=== PATIENT | male | born 1990 | race Caucasian/White ===

== ENCOUNTER 2024-12-17 00:20 | Inpatient (IN) ==
--- NOTE | 2024-12-17 00:42 | Emergency Department Note ---
Impression & Plan Alcoholic intoxication, Alcohol withdrawal ED Provider Note HISTORY OF PRESENT ILLNESS: Patient is a 34-year-old male presenting with alcohol intoxication. Patient presented to [facility] for alcohol detox when he was "too intoxicated for the facility." Patient states he "drank a lot" before presenting to the facility. He had a breathalyzer done at the facility and it was 0.120, which is apparently too high for their facility. The facility also stated to EMS they are concerned he may have taken some Xanax tonight. Patient reports that he has had seizures with alcohol withdrawal in the past. He is highly intoxicated and difficult to obtain a history from. ROS: as above PHYSICAL EXAM: Constitutional: Patient appears in no acute distress. Patient is clinically intoxicated and slurring his words and falls asleep easily. Smells strongly of alcohol. HENT: Head: Normocephalic and atraumatic. Eyes: EOMI, PERRL Mouth/Throat: Mucous membranes moist. Neck: Trachea midline. Neck supple. Cardiovascular: Tachycardic with regular rhythm. No murmurs, rubs or gallops. Intact distal pulses. Pulmonary/Chest: No respiratory distress. Breath sounds clear and equal bilaterally. No wheezes or rales. Abdominal: Abdomen soft, no tenderness, rebound or guarding. Musculoskeletal: No edema, tenderness or deformity noted. Skin: Warm and dry. No rash, erythema, pallor or cyanosis Neurological: Alert. CN II-XII grossly intact, moving all extremities equally and fully. MDM: - Vitals signs showed hypertension and tachycardia. - History obtained via patient and EMS, as patient intoxicated. History as above. - Chronic conditions affecting care: Alcohol use disorder - Differential diagnoses include, but are not limited to: Alcohol intoxication; drug intoxication; electrolyte abnormality - Order placed for continuous cardiac monitoring. At this time, monitor showed rate of 100 bpm with normal sinus rhythm, per my interpretation. - External medical records reviewed. - Laboratory workup interpreted by myself showed leukocytosis (WBC 13.77); thrombocytosis (plt 482); stable electrolytes; elevated alcohol (337.1) - Patient monitored in the emergency department for over 5 hours. Patient has a history of withdrawal seizures. Discussed the case with the hospitalist service, but they report that the patient can sober up and if he starts to have withdrawal symptoms they can then be consulted. They report that he is just intoxicated at this point. - On reassessment at 5:30 AM, patient is tremulous, tachycardic and starting to hallucinate. Nursing did in AWSS score and patient scored 15. Alcohol withdraw medications were ordered and IV Ativan was also ordered for his symptoms. - Discussed case with case investigator for admission. - Hospitalist, Dr. Lemos, consulted for admission - [facility] ASSESSMENT AND PLAN: Diagnosis: Alcohol intoxication; alcohol withdrawal Plan: admit Past Med/Surg History Problem List (Updated 12/17/24 @ 05:41 by Radha Sagastume MD) Alcohol withdrawal (Acute) Alcoholic intoxication (Acute) Results & Data (ED) Vital Signs Vital Signs - 24 hr 12/17/24 00:24 12/17/24 00:24 12/17/24 00:24 Temperature 36.6 C 36.6 C Temperature Source Oral Oral Pulse Rate 100 H Pulse Rate [Left Finger] 100 H Respiratory Rate 19 19 Respiratory Effort / Characteristics Non-Labored Spontaneous Non-Labored Spontaneous Respiratory Depth Normal Normal Blood Pressure 120/75 Blood Pressure [Left Arm] 124/80 Blood Pressure Mean 90 Blood Pressure Mean [Left Arm] 94 Blood Pressure Position [Left Arm] Lying Pulse Oximetry 93 93 93 Oxygen Delivery Method Room Air Room Air Room Air Sepsis Recent Fever Within 48 Hours No Sepsis New/Unexplained Change in Mental Status N/A Sepsis Action Taken by Nursing No Action Required 12/17/24 00:30 12/17/24 00:47 12/17/24 01:00 Temperature Temperature Source Pulse Rate 106 H 106 H Pulse Rate [Left Finger] 106 H Respiratory Rate 20 24 Respiratory Effort / Characteristics Non-Labored Spontaneous Respiratory Depth Normal Blood Pressure Blood Pressure [Left Arm] 120/75 Blood Pressure Mean Blood Pressure Mean [Left Arm] 90 Blood Pressure Position [Left Arm] Lying Pulse Oximetry 93 93 Oxygen Delivery Method Room Air Room Air Sepsis Recent Fever Within 48 Hours Sepsis New/Unexplained Change in Mental Status Sepsis Action Taken by Nursing 12/17/24 02:00 12/17/24 03:00 12/17/24 04:00 Temperature Temperature Source Pulse Rate Pulse Rate [Left Finger] 89 101 H 98 H Respiratory Rate 23 19 19 Respiratory Effort / Characteristics Non-Labored Spontaneous Non-Labored Spontaneous Non-Labored Spontaneous Respiratory Depth Normal Normal Normal Blood Pressure Blood Pressure [Left Arm] 124/78 147/88 H 157/88 H Blood Pressure Mean Blood Pressure Mean [Left Arm] 93 107 111 Blood Pressure Position [Left Arm] Lying Lying Lying Pulse Oximetry 95 96 100 Oxygen Delivery Method Room Air Room Air Room Air Sepsis Recent Fever Within 48 Hours Sepsis New/Unexplained Change in Mental Status Sepsis Action Taken by Nursing 12/17/24 04:40 12/17/24 05:00 Temperature Temperature Source Pulse Rate 100 H Pulse Rate [Left Finger] 92 H Respiratory Rate 21 Respiratory Effort / Characteristics Non-Labored Spontaneous Respiratory Depth Normal Blood Pressure Blood Pressure [Left Arm] 115/78 Blood Pressure Mean Blood Pressure Mean [Left Arm] 90 Blood Pressure Position [Left Arm] Lying Pulse Oximetry 84 L Oxygen Delivery Method Room Air Sepsis Recent Fever Within 48 Hours Sepsis New/Unexplained Change in Mental Status Sepsis Action Taken by Nursing Laboratory Data 12/17/24 00:23 12/17/24 00:24 Lab Results 12/17/24 12/17/24 Range/Units 00:23 00:24 WBC 13.77 H (4.8-10.8) K/ul RBC 5.70 (4.70-6.10) M/uL Hgb 15.2 (14.0-18.0) g/dl Hct 46.2 (42.0-52.0) % MCV 81.1 (80.0-100.0) fL MCH 26.7 (25.0-34.0) pg MCHC 32.9 (32.0-36.0) g/dL RDW Std Deviation 44.0 (36.4-46.3) fL RDW Coeff of [place] 15.1 H (11.5-14.5) % Plt Count 482 H (130-400) K/uL MPV 9.5 (9.4-12.4) fL Immature Gran % (Auto) 0.7 % Neut % (Auto) 60.4 % Lymph % (Auto) 29.4 % [place] % (Auto) 6.4 % Eos % (Auto) 2.4 % Baso % (Auto) 0.7 % Neut # (Auto) 8.32 H (1.40-6.50) K/uL Lymph # (Auto) 4.05 H (1.20-3.40) K/uL [place] # (Auto) 0.88 H (0.11-0.59) K/uL Eos # (Auto) 0.33 (0.00-0.50) K/uL Baso # (Auto) 0.09 (0.00-0.20) K/uL Immature Gran # (Auto) 0.10 (0.01-0.20) K/uL Sodium 142 (136-145) mmol/L Potassium 4.0 (3.5-5.1) mmol/L Chloride 111 H (98-107) mmol/L Carbon Dioxide 22 (21-32) mmol/L Anion Gap 9 (3-11) BUN 10 (6-23) mg/dl Creatinine 1.04 (0.6-1.4) mg/dl Est Cr Clr Drug Dosing Not Reportable eGFR 96.63 BUN/Creatinine Ratio 9.6 L (10-20) Glucose 104 H (70-99(Fasting)) mg/dl Calcium 9.1 (8.6-10.3) mg/dl Total Bilirubin 0.2 (0.2-1.0) mg/dl AST 14 (13-39) U/L ALT 20 (7-52) U/L Alkaline Phosphatase 113 H (34-104) U/L Total Protein 7.6 (6.0-8.3) gm/dl Albumin 4.5 (3.4-5.0) gm/dl Globulin 3.1 (2.5-4.0) gm/dl Albumin/Globulin Ratio 1.5 (0.9-2) Ethyl Alcohol mg/dL 337.1 H (<10.0) mg/dl Discharge Plan Visit Data Chief Complaint: Alcohol Intoxication Stated Complaint: ETOH ED Provider: Radha Sagastume Discharge Problem: Alcoholic intoxication, Alcohol withdrawal Patient Disposition: Still a Patient Forms Stand Alone Forms: My [facility] Referrals Referrals: PCP,NO [Primary Care Provider] -
[2024-12-17 00:48] LABS: Basophils # (auto) 0.09 K/uL (0.00-0.20); Basophils % (auto) 0.7 %; Eosinophils # (auto) 0.33 K/uL (0.00-0.50); Eosinophils % (auto) 2.4 %; Hematocrit (blood only) 46.2 % (42.0-52.0); Hemoglobin 15.2 g/dl (14.0-18.0); Immature Granulocytes % (auto) 0.7 %; Lymphocytes # (auto) 4.05 K/uL (1.20-3.40); Lymphocytes % (auto) 29.4 %; Mean Corpuscular Hemoglobin 26.7 pg (25.0-34.0); Mean Corpuscular Hgb Conc 32.9 g/dL (32.0-36.0); Mean Corpuscular Volume 81.1 fL (80.0-100.0); Mean Platelet Volume 9.5 fL (9.4-12.4); Monocytes # (auto) 0.88 K/uL (0.11-0.59); Monocytes % (auto) 6.4 %; Neutrophils # (auto) 8.32 K/uL (1.40-6.50); Neutrophils % (auto) 60.4 %; Platelet Count 482 K/uL (130-400); RDW Coefficient of Variation 15.1 % (11.5-14.5); White Blood Count 13.77 K/ul (4.8-10.8)
[2024-12-17 01:04] LABS: Alanine Aminotransferase 20 U/L (7-52); Albumin Globulin Ratio 1.5 (0.9-2); Albumin Level 4.5 gm/dl (3.4-5.0); Alkaline Phosphatase 113 U/L (34-104); Anion Gap 9 (3-11); Aspartate Aminotransferase 14 U/L (13-39); BUN Creatinine Ratio 9.6 (10-20); Bilirubin,Total 0.2 mg/dl (0.2-1.0); Blood Urea Nitrogen 10 mg/dl (6-23); Calcium 9.1 mg/dl (8.6-10.3); Carbon Dioxide 22 mmol/L (21-32); Chloride 111 mmol/L (98-107); Globulin 3.1 gm/dl (2.5-4.0); Glucose 104 mg/dl (70-99(Fasting)); Sodium 142 mmol/L (136-145); Total Protein 7.6 gm/dl (6.0-8.3)
[2024-12-17] MEDS ORDERED: Ativan IV Alcohol Withdrawal--Active Protocol IV PRN ×2 (05:36→06:05)
[2024-12-17] MEDS ORDERED: LORazepam 2 MG/1 ML VIAL IV PRN ×3 (05:36→06:05)
[2024-12-17 05:38] LABS: Appearance Urine Clear (Clear); Bilirubin Urine Negative (Negative); Blood Urine Negative (Negative); Color Urine Yellow; Glucose Urine UA Negative (Negative); Ketones Urine Negative (Negative); Leukocyte Esterase Urine Negative (Negative); Nitrite Urine Negative (Negative); Protein Urine Negative (Negative); Urobilinogen Urine Negative (Negative); pH Urine 5.5 (4.5-7.5)
[2024-12-17] MEDS: LORazepam 2 MG/1 ML VIAL IV PRN ×2 (05:52→20:46)
[2024-12-17 05:58] LABS: Amphetamines+Metham, Urine Neg (Neg); Barbiturates, Urine Neg (Neg); Benzodiazepine, Urine Neg (Neg); Cocaine, Urine Pos (Neg); Fentanyl, Urine Neg (Neg); MDMA (Ecstacy), Urine Neg (Neg); Marijuana, Urine Pos (Neg); Methadone, Urine Neg (Neg); Opiate, Urine Neg (Neg); Phencyclidine, Urine Neg (Neg)
--- NOTE | 2024-12-17 06:02 | History & Physical Report ---
Date of Service December 17, 2024 Assessment & Plan (1) Acute hypoxemic respiratory failure: Plan: Hypoxemic respiratory failure Likely post sedative administration at the ER. Alcohol withdrawal, history alcohol withdrawal seizures as per records hypertension, stable anxiety/mood disorder hx substance abuse past tobacco abuse Admit to PCU given need to administer high-dose Ativan Supplemental O2 Baseline VBG and chest x-ray SURY S, DT precautions Initiate gabapentin protocol once patient awake Obtain additional history and complete medication list from patient once awake. DVT prophylaxis. Lovenox subcu Full code Text document was generated using Dragon Tail voice recognition software. It may contain grammatical or spelling errors. Kindly contact undersigned for clarification of any documentation item in question. History of Present Illness Chief Complaint: Detox as per records Primary Care Provider: Dr. Cayden Hatch History obtained from ED provider and records. Unable to obtain history from patient secondary to obtunded state post IV Ativan administration at the ER. Medical history significant for hypertension, history of alcohol withdrawal seizures as per records, migraine, pineal gland cyst as per records, anxiety/mood disorder, alcohol abuse, substance abuse, past tobacco abuse. Patient is a resident of [facility] who went to [facility] yesterday for alcohol detox. Breathalyzer levels too high for facility as per report. Patient directed to ER for evaluation. 3 mg IV Ativan administered at the ER for agitation. Patient currently obtunded and unable to answer any questions coherently. Lowest O2 sats of 80s documented at the ER. Medical History as above Surgical History : Hernia repair, tonsillectomy/adenoidectomy, knee surgery, hip surgery Family History : Polycystic kidney disease Personal/Social history : Past tobacco abuse, alcohol abuse, prior employment Allergies Allergy/AdvReac Type Severity Reaction Status Date / Time citalopram Allergy Unknown Chest Unverified 12/17/24 09:48 discomfort, not effective dexamethasone [From Decadron] Allergy Unknown "I go Unverified 12/17/24 09:48 nuts, do not want it." metoclopramide [From Reglan] Allergy Unknown Restlessnes Unverified 12/17/24 09:48 s naproxen Allergy Unknown Abdominal Unverified 12/17/24 09:48 Pain Penicillins Allergy Unknown Hives - Unverified 12/17/24 09:48 Childhood allergy prochlorperazine Allergy Unknown Ataxia and Unverified 12/17/24 09:48 [From Compazine] restlessness "goes nuts" Home Medications Medication Instructions Recorded Confirmed Type No Known Home Medications 12/17/24 12/17/24 History Past Med/Surg History Problem List (Updated 12/17/24 @ 09:48 by Gil Lemos MD) Acute hypoxemic respiratory failure Alcohol withdrawal (Acute) Alcoholic intoxication (Acute) Social History Smoking Status: Current every day smoker Feels Safe at Home: Yes Review of Systems Review of Systems: Could not be reliably obtained secondary to obtunded state Physical Exam Physical Exam: GENERAL: Obtunded, looks older than stated age, no respiratory distress SKIN: Normal color, warm HEENT: [place] palpebral conjunctivae, no ptosis, dry buccal mucosa NECK : Supple, no tenderness CHEST : Decreased breath sounds, some rhonchi, no tenderness HEART : Tachycardic, no obvious murmurs ABDOMEN: Some distention, nontender EXTREMITIES : No LE swelling/tenderness, palpable pulses, no other conspicuous deformities noted NEUROLOGIC : Obtunded, no facial asymmetry, gait and stance not assessed Results & Data Results & Data Vital Signs (Past 12 Hours) Vital Signs Temp Pulse Pulse Resp BP BP Pulse Ox 12/17/24 05:00 92 H 21 115/78 84 L 12/17/24 04:40 100 H 12/17/24 04:00 98 H 19 157/88 H 100 12/17/24 03:00 101 H 19 147/88 H 96 12/17/24 02:00 89 23 124/78 95 12/17/24 01:00 106 H 24 120/75 93 12/17/24 00:47 106 H 20 93 12/17/24 00:30 106 H 12/17/24 00:24 36.6 C 100 H 19 124/80 93 12/17/24 00:24 93 12/17/24 00:24 36.6 C 100 H 19 120/75 93 O2 Del Method 12/17/24 05:00 Room Air 12/17/24 04:40 12/17/24 04:00 Room Air 12/17/24 03:00 Room Air 12/17/24 02:00 Room Air 12/17/24 01:00 Room Air 12/17/24 00:47 Room Air 12/17/24 00:30 12/17/24 00:24 Room Air 12/17/24 00:24 Room Air 12/17/24 00:24 Room Air Laboratory Results Laboratory Results WBC 13.77 K/ul (4.8-10.8) H 12/17/24 00:23 RBC 5.70 M/uL (4.70-6.10) 12/17/24 00:23 Hgb 15.2 g/dl (14.0-18.0) 12/17/24 00:23 Hct 46.2 % (42.0-52.0) 12/17/24 00:23 MCV 81.1 fL (80.0-100.0) 12/17/24 00:23 MCH 26.7 pg (25.0-34.0) 12/17/24 00:23 MCHC 32.9 g/dL (32.0-36.0) 12/17/24 00:23 RDW Std Deviation 44.0 fL (36.4-46.3) 12/17/24 00:23 RDW Coeff of Evette 15.1 % (11.5-14.5) H 12/17/24 00:23 Plt Count 482 K/uL (130-400) H 12/17/24 00:23 MPV 9.5 fL (9.4-12.4) 12/17/24 00:23 Immature Gran % (Auto) 0.7 % 12/17/24 00:23 Neut % (Auto) 60.4 % 12/17/24 00:23 Lymph % (Auto) 29.4 % 12/17/24 00:23 [place] % (Auto) 6.4 % 12/17/24 00:23 Eos % (Auto) 2.4 % 12/17/24 00:23 Baso % (Auto) 0.7 % 12/17/24 00:23 Neut # (Auto) 8.32 K/uL (1.40-6.50) H 12/17/24 00:23 Lymph # (Auto) 4.05 K/uL (1.20-3.40) H 12/17/24 00:23 [place] # (Auto) 0.88 K/uL (0.11-0.59) H 12/17/24 00:23 Eos # (Auto) 0.33 K/uL (0.00-0.50) 12/17/24 00:23 Baso # (Auto) 0.09 K/uL (0.00-0.20) 12/17/24 00:23 Immature Gran # (Auto) 0.10 K/uL (0.01-0.20) 12/17/24 00:23 Sodium 142 mmol/L (136-145) 12/17/24 00:24 Potassium 4.0 mmol/L (3.5-5.1) 12/17/24 00:24 Chloride 111 mmol/L (98-107) H 12/17/24 00:24 Carbon Dioxide 22 mmol/L (21-32) 12/17/24 00:24 Anion Gap 9 (3-11) 12/17/24 00:24 BUN 10 mg/dl (6-23) 12/17/24 00:24 Creatinine 1.04 mg/dl (0.6-1.4) 12/17/24 00:24 Est Cr Clr Drug Dosing Not Reportable 12/17/24 00:24 eGFR 96.63 12/17/24 00:24 BUN/Creatinine Ratio 9.6 (10-20) L 12/17/24 00:24 Glucose 104 mg/dl (70-99(Fasting)) H 12/17/24 00:24 Calcium 9.1 mg/dl (8.6-10.3) 12/17/24 00:24 Total Bilirubin 0.2 mg/dl (0.2-1.0) 12/17/24 00:24 AST 14 U/L (13-39) 12/17/24 00:24 ALT 20 U/L (7-52) 12/17/24 00:24 Alkaline Phosphatase 113 U/L (34-104) H 12/17/24 00:24 Total Protein 7.6 gm/dl (6.0-8.3) 12/17/24 00:24 Albumin 4.5 gm/dl (3.4-5.0) 12/17/24 00:24 Globulin 3.1 gm/dl (2.5-4.0) 12/17/24 00:24 Albumin/Globulin Ratio 1.5 (0.9-2) 12/17/24 00:24 Urine Color Yellow 12/17/24 05:25 Urine Appearance Clear (Clear) 12/17/24 05:25 Urine pH 5.5 (4.5-7.5) 12/17/24 05:25 Ur Specific [place] 1.010 (1.000-1.030) 12/17/24 05:25 Urine Protein Negative (Negative) 12/17/24 05:25 Urine Glucose (UA) Negative (Negative) 12/17/24 05:25 Urine Ketones Negative (Negative) 12/17/24 05:25 Urine Blood Negative (Negative) 12/17/24 05:25 Urine Nitrite Negative (Negative) 12/17/24 05:25 Urine Bilirubin Negative (Negative) 12/17/24 05:25 Urine Urobilinogen Negative (Negative) 12/17/24 05:25 Ur Leukocyte Esterase Negative (Negative) 12/17/24 05:25 Urine Opiates Screen Neg (Neg) 12/17/24 05:25 Ur Methadone, Qual Neg (Neg) 12/17/24 05:25 Urine Fentanyl Screen Neg (Neg) 12/17/24 05:25 Urine Barbiturates Neg (Neg) 12/17/24 05:25 Ur Phencyclidine (PCP) Neg (Neg) 12/17/24 05:25 U Amphetamin/Meth Scrn Neg (Neg) 12/17/24 05:25 MDMA (Ecstasy) Screen Neg (Neg) 12/17/24 05:25 U Benzodiazepines Scrn Neg (Neg) 12/17/24 05:25 Ur Cocaine Metabolite Pos (Neg) H 12/17/24 05:25 U Marijuana (THC) Screen Pos (Neg) H 12/17/24 05:25 Ethyl Alcohol mg/dL 337.1 mg/dl (<10.0) H 12/17/24 00:24
[2024-12-17 06:14] LABS: Magnesium 2.5 mg/dl (1.7-2.4)
[2024-12-17] MEDS: THIAMINE HCL 100 MG in SYRINGE 9 ML IV STA (06:24)
[2024-12-17] MEDS: Patient's ALLERGY Info needs ENTERED STA (07:22)
[2024-12-17 07:30] LABS: Base Excess VBG 3.9 mEq/L; HCO3 VBG 31 mmol/L; Oxygen Saturation VBG < 60.0 %; PCO2 VBG 56 mmHg (38-50); PO2 VBG 20 mmHg; pH VBG 7.35 (7.36-7.41)
[2024-12-17] MEDS ORDERED: FOLIC ACID 1 MG in SYRINGE 9.8 ML IV SCH (09:00)
[2024-12-17] MEDS ORDERED: THIAMINE HCL 100 MG in SYRINGE 9 ML IV SCH (09:00)
--- NOTE | 2024-12-17 09:26 | XRay Report ---
XR chest 1V portable CLINICAL HISTORY: low o2 COMPARISON STUDY: None FINDINGS: Heart size and pulmonary vasculature are normal. No effusion, consolidation, or pneumothora x. IMPRESSION: No acute findings. ACT 112: Negative or not required by law. Electronically signed by: Ming Gonsalves M.D. 12/17/2024 9:24 AM
[2024-12-17] MEDS: MULTIVITAMIN TAB PO SCH (09:50)
[2024-12-17] MEDS: FOLIC ACID 1 MG TAB PO SCH (09:50)
[2024-12-17] MEDS ORDERED: cloNIDine HCL 0.1 MG TAB PO PRN (10:12)
[2024-12-17] MEDS ORDERED: GABAPENTIN 1200MG ALCOHOL WITHDRAWAL LOAD PO STA (10:13)
[2024-12-17] MEDS: NICOTINE 21 MG/24 HR TDSY TD STA (10:28)
[2024-12-17] MEDS: ENOXAPARIN INJ 40 MG/0.4 ML SYR SQ SCH (10:28)
[2024-12-17] MEDS: GABAPENTIN 600 MG TAB PO ONE (10:29)
[2024-12-17 11:18] LABS: Adenovirus PCR Not Detected (NotDetected); Bordetella parapertussis PCR Not Detected (NotDetected); Bordetella pertussis PCR Not Detected (NotDetected); Chlamydia pneumoniae PCR Not Detected (NotDetected); Coronavirus 229E PCR Not Detected (NotDetected); Coronavirus CoV-2 (COVID19)PCR Not Detected (NotDetected); Coronavirus HKU1 PCR Not Detected (NotDetected); Coronavirus NL63 PCR Not Detected (NotDetected); Coronavirus OC43PCR Not Detected (NotDetected); Human Metapneumovirus PCR Not Detected (NotDetected); Influenza A PCR Not Detected (NotDetected); Influenza B PCR Not Detected (NotDetected); Mycoplasma pneumoniae PCR Not Detected (NotDetected); Parainfluenza Virus 1 PCR Not Detected (NotDetected); Parainfluenza Virus 2 PCR Not Detected (NotDetected); Parainfluenza Virus 3 PCR Not Detected (NotDetected); Parainfluenza Virus 4 PCR Not Detected (NotDetected); Respiratory Syncytial VirusPCR Not Detected (NotDetected); Rhinovirus/Enterovirus PCR Not Detected (NotDetected)
--- NOTE | 2024-12-17 15:19 | Hospitalist Progress Note ---
Date of Service December 17, 2024 Assessment & Plan (1) Acute hypoxemic respiratory failure: Plan: Alcohol Intoxication/withdrawal Drug abuse Patient admits to use THC, cocaine, and Xanax H/O alcohol withdrawal seizures in the past per patient --Toxicology positive for cocaine, THC --Alcohol level: 337 Continue gabapentin protocol Also on thiamine, folic acid Counseled to quit drug use Monitor for alcohol withdrawal Plan to discharge to drug rehab when medically stable Hypoxemic respiratory failure Likely post sedative administration in ED --CXR:No acute findings. -- BioFire negative Weaned off of supplemental oxygen Monitor Tobacco use disorder Nicotine patch Counseled to quit smoking Hypertension Likely due to alcohol/drug withdrawal Clonidine as needed Monitor Anxiety/mood disorder Chronic pain On Suboxone DVT Px: Lovenox SQ Code Status Full code Admission and Anticipated Discharge Date Admission Date: December 17, 2024 Subjective Patient is seen and examined at bedside Patient states feeling anxious during my encounter this morning Also reports nausea, minimal cough and rhinitis Denies any chest pain, abdominal pain, dizziness No other complaints Review of Systems Review of Systems: All systems reviewed & are unremarkable except as noted in Subjective Physical Exam Physical Exam: Physical Exam: Vitals signs as noted above General Appearance:Moderately built and nourished, no apparent distress Head: normocephalic, Atraumatic Eyes: normal inspection, EOMI Neck: supple, Trachea midline Respiratory/Chest: Normal breath sounds, CTA, No accessory muscle use Cardiovascular: S1, S2, No murmur, tachycardia Abdomen/GI:Soft, Non tender, Bowel sounds present Extremities/Musculoskeletal:normal inspection, no edema Neurologic/Psych:AAOX3, grossly no focal neurological deficits Skin: normal color, warm Results & Data Results & Data Vital Signs (Past 12 Hours) Vital Signs Temp Pulse Pulse Resp BP BP Pulse Ox 12/17/24 13:30 101 H 20 125/69 93 12/17/24 13:00 101 H 22 162/83 H 94 12/17/24 12:36 24 144/95 H 96 12/17/24 12:05 102 H 18 118/76 97 12/17/24 12:00 37 C 12/17/24 11:00 99 H 22 147/94 H 97 12/17/24 10:35 36.9 C 120 H 18 150/96 H 94 12/17/24 09:03 37 C 114 H 17 133/88 98 12/17/24 08:36 97 H 12/17/24 07:05 98 H 21 145/82 H 94 12/17/24 06:45 36.6 C 96 H 20 132/79 95 12/17/24 06:00 36.6 C 98 H 19 139/82 96 12/17/24 05:00 92 H 21 115/78 95 12/17/24 04:40 100 H 12/17/24 04:00 98 H 19 157/88 H 100 O2 Del Method 12/17/24 13:30 12/17/24 13:00 12/17/24 12:36 12/17/24 12:05 12/17/24 12:00 12/17/24 11:00 12/17/24 10:35 Room Air 12/17/24 09:03 Room Air 12/17/24 08:36 12/17/24 07:05 Room Air 12/17/24 06:45 Room Air 12/17/24 06:00 Room Air 12/17/24 05:00 Room Air 12/17/24 04:40 12/17/24 04:00 Room Air Laboratory Results Short CBC 12/17/24 Range/Units 00:23 WBC 13.77 H (4.8-10.8) K/ul Hgb 15.2 (14.0-18.0) g/dl Hct 46.2 (42.0-52.0) % Plt Count 482 H (130-400) K/uL BMP 12/17/24 00:24 Sodium 142 Potassium 4.0 Chloride 111 H Carbon Dioxide 22 BUN 10 Creatinine 1.04 Glucose 104 H Calcium 9.1 Liver Function 12/17/24 Range/Units 00:24 Total Bilirubin 0.2 (0.2-1.0) mg/dl AST 14 (13-39) U/L ALT 20 (7-52) U/L Alkaline Phosphatase 113 H (34-104) U/L Albumin 4.5 (3.4-5.0) gm/dl Urine 12/17/24 Range/Units 05:25 Urine Color Yellow Urine Appearance Clear (Clear) Urine pH 5.5 (4.5-7.5) Ur Specific [place] 1.010 (1.000-1.030) Urine Protein Negative (Negative) Urine Glucose (UA) Negative (Negative)
[2024-12-17] MEDS: GABAPENTIN 600 MG TAB PO SCH (16:35)
[2024-12-17] MEDS ORDERED: ONDANSETRON INJ 2 MG/ML 2 ML VIAL IV PRN (19:29)
[2024-12-17] MEDS: ONDANSETRON INJ 2 MG/ML 2 ML VIAL IV STA (19:52)
[2024-12-17] MEDS ORDERED: MELATONIN 3 MG TAB PO PRN (19:56)
[2024-12-17] MEDS: BUPRENORPHINE/NALOXONE 8/2 MG TAB SL SCH (20:48)
[2024-12-17] MEDS: QUEtiapine FUMARATE 50 MG TABCR PO PRN (22:01)
[2024-12-18] MEDS: GABAPENTIN 600 MG TAB PO SCH (05:33)
[2024-12-18 06:17] LABS: Hematocrit (blood only) 44.5 % (42.0-52.0); Hemoglobin 14.5 g/dl (14.0-18.0); Mean Corpuscular Hemoglobin 26.7 pg (25.0-34.0); Mean Corpuscular Hgb Conc 32.6 g/dL (32.0-36.0); Mean Corpuscular Volume 81.8 fL (80.0-100.0); Mean Platelet Volume 9.9 fL (9.4-12.4); Platelet Count 423 K/uL (130-400); RDW Coefficient of Variation 15.3 % (11.5-14.5); RDW Standard Deviation 45.1 fL (36.4-46.3); Red Blood Count 5.44 M/uL (4.70-6.10)
[2024-12-18 06:49] LABS: BUN Creatinine Ratio 21.7 (10-20); Calcium 8.7 mg/dl (8.6-10.3); Creatinine Clr Calc Pharmacy 186.9 ml/min; Potassium 3.8 mmol/L (3.5-5.1)
[2024-12-18] MEDS ORDERED: QUEtiapine FUMARATE 200 MG TABCR PO PRN (09:12)
[2024-12-18] MEDS: LORazepam 1 MG TAB PO STA (10:21)
[2024-12-18] MEDS: NICOTINE 21 MG/24 HR TDSY TD SCH (10:22)
[2024-12-18] MEDS: THIAMINE HCL 100 MG TAB PO SCH (10:24)
--- NOTE | 2024-12-18 12:22 | Hospitalist Progress Note ---
Date of Service December 18, 2024 Assessment & Plan (1) Acute hypoxemic respiratory failure: Plan: Alcohol Intoxication/withdrawal Drug abuse Patient admits to use THC, cocaine, and Xanax H/O alcohol withdrawal seizures in the past per patient --Toxicology positive for cocaine, THC --Alcohol level: 337 Continue gabapentin protocol Also on thiamine, folic acid Counseled to quit drug use Monitor for alcohol withdrawal Plan to discharge to drug rehab today Hypoxemic respiratory failure Likely post sedative administration in ED --CXR:No acute findings. -- BioFire negative Weaned off of supplemental oxygen Monitor Saturating well on room air Tobacco use disorder Nicotine patch Counseled to quit smoking Hypertension Likely due to alcohol/drug withdrawal Clonidine as needed Monitor Anxiety/mood disorder Chronic pain On Suboxone DVT Px: Lovenox SQ Code Status Full code Admission and Anticipated Discharge Date Admission Date: December 17, 2024 Subjective Patient is seen and examined at bedside Reports chronic [id number] of feet No other complaints today Prefers to be discharged to [facility] today No nausea, cough today Denies any chest pain, dyspnea, abdominal pain, dizziness Plan to discharge to drug rehab center today Review of Systems Review of Systems: All systems reviewed & are unremarkable except as noted in Subjective Physical Exam Physical Exam: Physical Exam: Vitals signs as noted above General Appearance:Moderately built and nourished, no apparent distress Head: normocephalic, Atraumatic Eyes: normal inspection, EOMI Neck: supple, Trachea midline Respiratory/Chest: Normal breath sounds, CTA, No accessory muscle use Cardiovascular: S1, S2, No murmur, tachycardia Abdomen/GI:Soft, Non tender, Bowel sounds present Extremities/Musculoskeletal:normal inspection, no edema Neurologic/Psych:AAOX3, grossly no focal neurological deficits Skin: normal color, warm Results & Data Results & Data Vital Signs (Past 12 Hours) Vital Signs Temp Pulse Resp BP BP Pulse Ox O2 Del Method 12/18/24 12:16 Room Air 12/18/24 10:50 36.5 C 90 18 161/102 H 98 Room Air 12/18/24 07:23 36.4 C L 78 18 143/84 H 98 Room Air 12/18/24 03:45 36.3 C L 87 18 132/88 95 Room Air Laboratory Results Short CBC 12/18/24 Range/Units 05:31 WBC 11.90 H (4.8-10.8) K/ul Hgb 14.5 (14.0-18.0) g/dl Hct 44.5 (42.0-52.0) % Plt Count 423 H (130-400) K/uL [facility] 12/18/24 05:31 Sodium 141 Potassium 3.8 Chloride 109 H Carbon Dioxide 25 BUN 15 Creatinine 0.69 D Glucose 95 Calcium 8.7
--- NOTE | 2024-12-18 12:31 | Discharge Summary ---
Date of Service December 18, 2024 Admission HPI Per Admitting Provider History obtained from ED provider and records. Unable to obtain history from patient secondary to obtunded state post IV Ativan administration at the ER. Medical history significant for hypertension, history of alcohol withdrawal seizures as per records, migraine, pineal gland cyst as per records, anxiety/mood disorder, alcohol abuse, substance abuse, past tobacco abuse. Patient is a resident of [facility] who went to [facility] yesterday for alcohol detox. Breathalyzer levels too high for facility as per report. Patient directed to ER for evaluation. 3 mg IV Ativan administered at the ER for agitation. Patient currently obtunded and unable to answer any questions coherently. Lowest O2 sats of 80s documented at the ER. Medical History as above Surgical History : Hernia repair, tonsillectomy/adenoidectomy, knee surgery, hip surgery Family History : Polycystic kidney disease Personal/Social history : Past tobacco abuse, alcohol abuse, prior employment Admission Exam Per Admitting Provider GENERAL: Obtunded, looks older than stated age, no respiratory distress SKIN: Normal color, warm HEENT: [place] palpebral conjunctivae, no ptosis, dry buccal mucosa NECK : Supple, no tenderness CHEST : Decreased breath sounds, some rhonchi, no tenderness HEART : Tachycardic, no obvious murmurs ABDOMEN: Some distention, nontender EXTREMITIES : No LE swelling/tenderness, palpable pulses, no other conspicuous deformities noted NEUROLOGIC : Obtunded, no facial asymmetry, gait and stance not assessed Principal Diagnosis Alcohol Intoxication/withdrawal Drug abuse Mood disorder Chronic pain Discharge Data Allergies Allergy/AdvReac Type Severity Reaction Status Date / Time citalopram Allergy Unknown Chest Unverified 12/17/24 09:48 discomfort, not effective dexamethasone [From Decadron] Allergy Unknown "I go Unverified 12/17/24 09:48 nuts, do not want it." metoclopramide [From Reglan] Allergy Unknown Restlessnes Unverified 12/17/24 09:48 s naproxen Allergy Unknown Abdominal Unverified 12/17/24 09:48 Pain Penicillins Allergy Unknown Hives - Unverified 12/17/24 09:48 Childhood allergy prochlorperazine Allergy Unknown Ataxia and Unverified 12/17/24 09:48 [From Compazine] restlessness "goes nuts" Consultations 12/17/24 05:36 ED Decision to Admit Stat Procedures Performed Laboratory Results WBC 11.90 K/ul (4.8-10.8) H 12/18/24 05:31 RBC 5.44 M/uL (4.70-6.10) 12/18/24 05:31 Hgb 14.5 g/dl (14.0-18.0) 12/18/24 05:31 Hct 44.5 % (42.0-52.0) 12/18/24 05:31 MCV 81.8 fL (80.0-100.0) 12/18/24 05:31 MCH 26.7 pg (25.0-34.0) 12/18/24 05:31 MCHC 32.6 g/dL (32.0-36.0) 12/18/24 05:31 RDW Std Deviation 45.1 fL (36.4-46.3) 12/18/24 05:31 RDW Coeff of Evette 15.3 % (11.5-14.5) H 12/18/24 05:31 Plt Count 423 K/uL (130-400) H 12/18/24 05:31 MPV 9.9 fL (9.4-12.4) 12/18/24 05:31 Immature Gran % (Auto) 0.7 % 12/17/24 00:23 Neut % (Auto) 60.4 % 12/17/24 00:23 Lymph % (Auto) 29.4 % 12/17/24 00:23 Ward % (Auto) 6.4 % 12/17/24 00:23 Eos % (Auto) 2.4 % 12/17/24 00:23 Baso % (Auto) 0.7 % 12/17/24 00:23 Neut # (Auto) 8.32 K/uL (1.40-6.50) H 12/17/24 00:23 Lymph # (Auto) 4.05 K/uL (1.20-3.40) H 12/17/24 00:23 Ward # (Auto) 0.88 K/uL (0.11-0.59) H 12/17/24 00:23 Eos # (Auto) 0.33 K/uL (0.00-0.50) 12/17/24 00:23 Baso # (Auto) 0.09 K/uL (0.00-0.20) 12/17/24 00:23 Immature Gran # (Auto) 0.10 K/uL (0.01-0.20) 12/17/24 00:23 VBG pH 7.35 (7.36-7.41) L 12/17/24 07:25 VBG pCO2 56 mmHg (38-50) H 12/17/24 07:25 VBG pO2 20 mmHg 12/17/24 07: VBG HCO3 31 mmol/L 12/17/24 07:25 VBG O2 Saturation < 60.0 % 12/17/24 07:25 VBG Base Excess 3.9 mEq/L 12/17/24 07:25 Sodium 141 mmol/L (136-145) 12/18/24 05:31 Potassium 3.8 mmol/L (3.5-5.1) 12/18/24 05:31 Chloride 109 mmol/L (98-107) H 12/18/24 05:31 Carbon Dioxide 25 mmol/L (21-32) 12/18/24 05:31 Anion Gap 7 (3-11) 12/18/24 05:31 BUN 15 mg/dl (6-23) 12/18/24 05:31 Creatinine 0.69 mg/dl (0.6-1.4) D 12/18/24 05:31 Est Cr Clr Drug Dosing 186.9 ml/min 12/18/24 05:31 eGFR 124.54 12/18/24 05:31 BUN/Creatinine Ratio 21.7 (10-20) H 12/18/24 05:31 Glucose 95 mg/dl (70-99(Fasting)) 12/18/24 05:31 Calcium 8.7 mg/dl (8.6-10.3) 12/18/24 05:31 Magnesium 2.5 mg/dl (1.7-2.4) H 12/17/24 00:24 Total Bilirubin 0.2 mg/dl (0.2-1.0) 12/17/24 00:24 AST 14 U/L (13-39) 12/17/24 00:24 ALT 20 U/L (7-52) 12/17/24 00:24 Alkaline Phosphatase 113 U/L (34-104) H 12/17/24 00:24 Total Protein 7.6 gm/dl (6.0-8.3) 12/17/24 00:24 Albumin 4.5 gm/dl (3.4-5.0) 12/17/24 00:24 Globulin 3.1 gm/dl (2.5-4.0) 12/17/24 00:24 Albumin/Globulin Ratio 1.5 (0.9-2) 12/17/24 00:24 Urine Color Yellow 12/17/24 05:25 Urine Appearance Clear (Clear) 12/17/24 05:25 Urine pH 5.5 (4.5-7.5) 12/17/24 05:25 Ur Specific Brantley 1.010 (1.000-1.030) 12/17/24 05:25 Urine Protein Negative (Negative) 12/17/24 05:25 Urine Glucose (UA) Negative (Negative) 12/17/24 05:25 Urine Ketones Negative (Negative) 12/17/24 05:25 Urine Blood Negative (Negative) 12/17/24 05:25 Urine Nitrite Negative (Negative) 12/17/24 05:25 Urine Bilirubin Negative (Negative) 12/17/24 05:25 Urine Urobilinogen Negative (Negative) 12/17/24 05:25 Ur Leukocyte Esterase Negative (Negative) 12/17/24 05:25 Urine Opiates Screen Neg (Neg) 12/17/24 05:25 Ur Methadone, Qual Neg (Neg) 12/17/24 05:25 Urine Fentanyl Screen Neg (Neg) 12/17/24 05:25 Urine Barbiturates Neg (Neg) 12/17/24 05:25 Ur Phencyclidine (PCP) Neg (Neg) 12/17/24 05:25 U Amphetamin/Meth Scrn Neg (Neg) 12/17/24 05:25 MDMA (Ecstasy) Screen Neg (Neg) 12/17/24 05:25 U Benzodiazepines Scrn Neg (Neg) 12/17/24 05:25 Ur Cocaine Metabolite Pos (Neg) H 12/17/24 05:25 U Marijuana (THC) Screen Pos (Neg) H 12/17/24 05:25 Ethyl Alcohol mg/dL 337.1 mg/dl (<10.0) H 12/17/24 00:24 Adenovirus (PCR) Not Detected (NotDetected) 12/17/24 Unknown B. pertussis DNA (PCR) Not Detected (NotDetected) 12/17/24 Unknown B.parapertussis DNA PCR Not Detected (NotDetected) 12/17/24 Unknown C. pneumoniae DNA (PCR) Not Detected (NotDetected) 12/17/24 Unknown Coronavirus OC43 (PCR) Not Detected (NotDetected) 12/17/24 Unknown Coronavirus HKU1 (PCR) Not Detected (NotDetected) 12/17/24 Unknown Coronavirus 229E (PCR) Not Detected (NotDetected) 12/17/24 Unknown SARS-CoV-2 (PCR) Not Detected (NotDetected) 12/17/24 Unknown Coronavirus NL63 (PCR) Not Detected (NotDetected) 12/17/24 Unknown Human Metapneumovir PCR Not Detected (NotDetected) 12/17/24 Unknown Influenza Type A (PCR) Not Detected (NotDetected) 12/17/24 Unknown Influenza Type B (PCR) Not Detected (NotDetected) 12/17/24 Unknown M. pneumoniae (PCR) Not Detected (NotDetected) 12/17/24 Unknown Parainfluenza 1 (PCR) Not Detected (NotDetected) 12/17/24 Unknown Parainfluenza 2 (PCR) Not Detected (NotDetected) 12/17/24 Unknown Parainfluenza 3 (PCR) Not Detected (NotDetected) 12/17/24 Unknown Parainfluenza 4 (PCR) Not Detected (NotDetected) 12/17/24 Unknown RSV (PCR) Not Detected (NotDetected) 12/17/24 Unknown Entero/Rhino (PCR) Not Detected (NotDetected) 12/17/24 Unknown Impressions Chest X-Ray 12/17/24 05:50 XR chest 1V portable CLINICAL HISTORY: low o2 COMPARISON STUDY: None FINDINGS: Heart size and pulmonary vasculature are normal. No effusion, consolidation, or pneumothorax. IMPRESSION: No acute findings. ACT 112: Negative or not required by law. Electronically signed by: Ming Gonsalves M.D. 12/17/2024 9:24 AM Hospital Course (1) Acute hypoxemic respiratory failure: Alcohol Intoxication/withdrawal Drug abuse Patient admits to use THC, cocaine, and Xanax H/O alcohol withdrawal seizures in the past per patient --Toxicology positive for cocaine, THC --Alcohol level: 337 Continue gabapentin protocol Also on thiamine, folic acid Counseled to quit drug use Monitor for alcohol withdrawal Plan to discharge to drug rehab today Hypoxemic respiratory failure Likely post sedative administration in ED --CXR:No acute findings. -- BioFire negative Weaned off of supplemental oxygen Monitor Saturating well on room air Tobacco use disorder Nicotine patch Counseled to quit smoking Hypertension Likely due to alcohol/drug withdrawal Clonidine as needed Monitor Anxiety/mood disorder Chronic pain On Suboxone DVT Px: Lovenox SQ Code Status Full code Total Time Total Time Spent Total Time Spent (In Minutes): 54 minutes Discharge Plan Discharge Items Patient Disposition: Drug & Alcohol Rehab Reason For Visit: RESP FAILURE, ETOH WITHDRAWL Discharge Diagnosis: Alcohol Intoxication/withdrawal Drug abuse Mood disorder Chronic pain Activity: Per Instructions section Exercise/Sports: Wait until after follow-up appointment Non-emergency contact: Primary Care Provider Call non-emergency contact if: you have any medication questions, your symptoms worsen, your pain is concerning for you and you have a fever Follow-up/Referrals: Danny Edouard, [Primary Care Provider] - Diet: Heart Healthy Addtl Attending Provider Instructions: Follow-up with your primary care physician in 1 week Follow-up with your drug rehab physician for further management as advised. Consider following with your psychiatrist/pain management physician Seek immediate medical attention if your symptoms reoccur or worsen Please take all medications as instructed on discharge list below. Please call if you have any questions or problems. You can reach a [facility] hospitalist on duty at [facility] 24 hours a day by calling [phone] Pending Studies at Discharge: No Stand-Alone Forms: My [facility] Skilled Items Patient informed of condition?: Yes DNR: No Discharge Level of Care: Other Communicable Disease: No Discharge Prognosis: Stable Lines: None Urinary Catheter: No Medications and DC Order Prescriptions: New thiamine HCl (vitamin B1) 100 mg Tablet 100 mg PO QAM Qty: 30 0RF folic acid 1 mg Tablet 1 mg PO QAM Qty: 30 0RF multivitamin with folic acid [Daily-Yadira (with folic acid)] 400 mcg Tablet 1 tab PO QAM Qty: 30 0RF Continued Seroquel XR 200 mg PO HS PRN (Reason: Insomnia) buprenorphine-naloxone [Suboxone] 8-2 mg Film 1 ea sublingual BID Discharge Orders: Discharge Order (Routine); Ordered 12/18/24 Ordered By: Tam Alfred Admission Data Admit Date/Time: 12/17/24 06:04 Attending Provider: Tam Alfred Admit Provider: Gil Lemos Primary Care Provider: Danny Edouard Other Providers: Gil Lemos; [facility]
[2024-12-19] MEDS ORDERED: GABAPENTIN 600 MG TAB PO SCH (10:00)
[2024-12-20] MEDS ORDERED: GABAPENTIN 600 MG TAB PO SCH (22:00)
[2024-12-21 11:38] LABS: Cocaine, Urine 2400 ng/mL (<100); Marijuana Quant, GCMS Urine 952 ng/mL (<5)
== END 2024-12-18 14:53 | disposition alcohol treatment (31) | DRG 896 ==
LOC: ED 00:20 → EDINP 06:04 → SUATTDRO 06:04 → 4W 08:42